=== PATIENT | female | born 1995 | race Two or more races ===

== ENCOUNTER 2019-05-18 10:43 | Emergency (ER) | payer BC ==
[~2019-05-18] VITALS: Ht 157.5 cm; Wt 61.2 kg
[2019-05-18] MEDS ORDERED: IV NORMAL SALINE 1000ML BAG 1,000 ML IV SCH (11:41)
[2019-05-18] MEDS ORDERED: KETOROLAC 30 MG/ML VIAL. IV ONE (11:45)
[2019-05-18] MEDS ORDERED: ONDANSETRON PF 4 MG/2 ML VIAL. IV ONE (11:45)
[2019-05-18 11:52] LABS: BILIRUBIN,URINE NEGATIVE (NEG); CLARITY,URINE CLEAR; COLOR,URINE YELLOW; NITRITE,URINE NEGATIVE (NEG); PH,URINE 7.5; PROTEIN,URINE NEGATIVE (NEG-TRACE); UROBILINOGEN,URINE 0.2 mg/dL (0.2 mg/dL)
--- NOTE | 2019-05-18 11:55 | PHYS DOC ---
Past Medical History Past Medical History: No Pertinent History Past Surgical History: No Surgical History Alcohol Use: Occasionally Drug Use: Marijuana Adult General Chief Complaint Chief Complaint: ABDOMINAL PAIN HPI HPI Patient is a 24 year old female patient without history of medical problem who presents with complaint of abdominal pain. Patient complaining of constant left- sided abdominal pain for the last 3 days as a sharp cramping pain pain without radiation. Patient complaining of nausea and constipation and states she usually has a bowel movement every other day but for the last 3 days she didn't have any bowel movement. Patient denies urinary symptoms, fever and chills, vomiting, vaginal bleeding or discharge, . Patient is homosexual. Patient rated her pain 8/10. Review of Systems Review of Systems Constitutional: Denies fever or chills [] Eyes: Denies change in visual acuity, redness, or eye pain [] HENT: Denies nasal congestion or sore throat [] Respiratory: Denies cough or shortness of breath [] Cardiovascular: No additional information not addressed in HPI [] GI: Reports abdominal pain, nausea, constipation, denies vomiting, bloody stools or diarrhea [] : Denies dysuria or hematuria [] Musculoskeletal: Denies back pain or joint pain [] Integument: Denies rash or skin lesions [] Neurologic: Denies headache, focal weakness or sensory changes [] Endocrine: Denies polyuria or polydipsia [] All other systems were reviewed and found to be within normal limits, except as documented in this note. Current Medications Current Medications Current Medications Medications (Trade) Dose Ordered Sig/Janet Start Time Stop Time Status Last Admin Dose Admin Ketorolac Tromethamine (Toradol 30mg Vial) 30 mg 1X ONCE 05/18/19 11:45 05/18/19 11:46 DC 05/18/19 11:50 30 MG Ondansetron HCl (Zofran) 4 mg 1X ONCE 05/18/19 11:45 05/18/19 11:46 DC 05/18/19 11:50 4 MG Sodium Chloride 1,000 ml @ 1,000 mls/hr Q1H 05/18/19 11:41 05/18/19 12:40 DC 05/18/19 11:50 1,000 MLS/HR Allergies Allergies Allergies Coded Allergies Type Severity Reaction Last Updated Verified No Known Drug Allergies 05/18/19 No Physical Exam Physical Exam Constitutional: Well developed, well nourished, mild distress, non-toxic appear ance. [] HENT: Normocephalic, atraumatic. Eyes: PERRLA, EOMI, conjunctiva normal, no discharge. [] Neck: Normal range of motion, no tenderness, supple, no stridor. [] Cardiovascular:Heart rate regular rhythm, no murmur [] Lungs & Thorax: Bilateral breath sounds clear to auscultation [] Abdomen: Bowel sounds normal, soft, no tenderness, no masses, no pulsatile masses. [] Skin: Warm, dry, no erythema, no rash. [] Back: No tenderness, no CVA tenderness. [] Extremities: No tenderness, no cyanosis, no clubbing, ROM intact, no edema. [] Neurologic: Alert and oriented X 3, no focal deficits noted. [] Psychologic: Affect normal, judgement normal, mood normal. [] Current Patient Data Vital Signs Vital Signs Date Time Temp Pulse Resp B/P (MAP) Pulse Ox O2 Delivery O2 Flow Rate FiO2 05/18/19 13:00 66 111/71 (84) 100 Room Air 05/18/19 11:13 98.6 12 98.6 Lab Values Laboratory Tests Test 05/18/19 11:20 05/18/19 11:22 05/18/19 11:55 Urine Color Yellow Urine Clarity Clear Urine pH 7.5 Urine Specific [place] 1.015 Urine Protein Negative mg/dL (NEG-TRACE) Urine Glucose (UA) Negative mg/dL (NEG) Urine Ketones (Stick) Negative mg/dL (NEG) Urine Blood Negative (NEG) Urine Nitrite Negative (NEG) Urine Bilirubin Negative (NEG) Urine Urobilinogen Dipstick 0.2 mg/dL (0.2 mg/dL) Urine Leukocyte Esterase Negative (NEG) Urine RBC 0 /HPF (0-2) Urine WBC 0 /HPF (0-4) Urine Squamous Epithelial Cells Few /LPF Urine Bacteria 0 /HPF (0-FEW) POC Urine HCG, Qualitative Hcg negative (Negative) White Blood Count 8.9 x10^3/uL (4.0-11.0) Red Blood Count 4.30 x10^6/uL (3.50-5.40) Hemoglobin 13.8 g/dL (12.0-15.5) Hematocrit 40.6 % (36.0-47.0) Mean Corpuscular Volume 95 fL (79-100) Mean Corpuscular Hemoglobin 32 pg (25-35) Mean Corpuscular Hemoglobin Concent 34 g/dL (31-37) Red Cell Distribution Width 13.2 % (11.5-14.5) Platelet Count 392 x10^3/uL (140-400) Neutrophils (%) (Auto) 72 % (31-73) Lymphocytes (%) (Auto) 18 % (24-48) L Monocytes (%) (Auto) 5 % (0-9) Eosinophils (%) (Auto) 4 % (0-3) H Basophils (%) (Auto) 1 % (0-3) Neutrophils # (Auto) 6.4 x10^3/uL (1.8-7.7) Lymphocytes # (Auto) 1.6 x10^3/uL (1.0-4.8) Monocytes # (Auto) 0.4 x10^3/uL (0.0-1.1) Eosinophils # (Auto) 0.4 x10^3/uL (0.0-0.7) Basophils # (Auto) 0.1 x10^3/uL (0.0-0.2) Sodium Level 140 mmol/L (136-145) Potassium Level 4.1 mmol/L (3.5-5.1) Chloride Level 102 mmol/L (98-107) Carbon Dioxide Level 29 mmol/L (21-32) Anion Gap 9 (6-14) Blood Urea Nitrogen 8 mg/dL (7-20) Creatinine 0.8 mg/dL (0.6-1.0) Estimated GFR (Cockcroft-Gault) 87.4 BUN/Creatinine Ratio 10 (6-20) Glucose Level 93 mg/dL (70-99) Calcium Level 9.1 mg/dL (8.5-10.1) Total Bilirubin 0.5 mg/dL (0.2-1.0) Aspartate Amino Transferase (AST) 14 U/L (15-37) L Alanine Aminotransferase (ALT) 16 U/L (14-59) Alkaline Phosphatase 44 U/L (46-116) L Total Protein 7.4 g/dL (6.4-8.2) Albumin 3.9 g/dL (3.4-5.0) Albumin/Globulin Ratio 1.1 (1.0-1.7) Lipase 52 U/L (73-393) L Laboratory Tests 05/18/19 11:55 Laboratory Tests 05/18/19 11:55 EKG EKG [] Radiology/Procedures Radiology/Procedures [][facility] [address] [place] [address] IMAGING REPORT Signed PATIENT: ASHLEIGH PAEZ JACCOUNT: [id number] : 1995 LOCATION: ER AGE: 24 SEX: F EXAM STATUS: REG ER ORD. PHYSICIAN: XUAN BARTLETT MD REASON: pain PROCEDURE: ABDOMEN SUPINE & UPRIGHT 3 supine views of the abdomen no comparison. Indication : Abdominal pain Findings: The heart is not enlarged. No pneumothorax, effusion, airspace or interstitial disease. The bowel gas pattern is unremarkable. The bony structures are unremarkable. No abnormal calcification or organomegaly. Impression: 1. Unremarkable plain film examination of the abdomen. Electronically signed by: Javier Stephens MD (05/18/2019 12:50 PM) [facility] DICTATED and SIGNED BY: JAVIER STEPHENS MD DATE: 05/18/191249 Course & Med Decision Making Course & Med Decision Making Pertinent Labs and Imaging studies reviewed. (See chart for details) Evaluation of patient in ER showed 24-year-old female patient with complaining of left-sided abdominal pain and nausea and constipation. Patient had unremarkable physical exam and labs and x-ray of abdomen. Patient felt better with treatment in ER. Plan discharge patient home with diagnosis of constipation and abdominal pain. Dragon Disclaimer Dragon Disclaimer This electronic medical record was generated, in whole or in part, using a voice recognition dictation system. Departure Departure Impression: Primary Impression: Constipation Additional Impression: Abdominal pain Disposition: 01 HOME, SELF-CARE (at 1414) Condition: IMPROVED Referrals: NO PCP (PCP) Patient Instructions: Constipation, Adult Additional Instructions: Drink plenty of liquids Follow-up with your primary care physician in 3-5 days Return to ER if not getting better Scripts Ibuprofen (IBUPROFEN) 600 Mg Tablet 600 MG PO PRN Q6HRS PRN for PAIN, #20 TAB take with food or milk Prov: XUAN BARTLETT MD 05/18/19 Magnesium Citrate (MAGNESIUM CITRATE) 296 Ml Solution 296 ML PO ONCE, #296 ML Drink half a bottle every 12 hours as needed for constipation Prov: XUAN BARTLETT MD 05/18/19 Problem Qualifiers Primary Impression: Constipation Constipation type: unspecified constipation type Qualified Codes: K59.00 - Constipation, unspecified Additional Impression: Abdominal pain Abdominal location: unspecified location Qualified Codes: R10.9 - Unspecified abdominal pain XUAN BARTLETT MD May 18, 2019 11:55
[2019-05-18 12:05] LABS: BACTERIA,URINE 0 /HPF (0-FEW); RBC,URINE 0 /HPF (0-2); SQUAMOUS EPITHELIAL CELL,UR FEW /LPF; WBC,URINE 0 /HPF (0-4)
[2019-05-18 12:11] LABS: BASO # 0.1 x10^3/uL (0.0-0.2); BASO % 1 % (0-3); EOS # 0.4 x10^3/uL (0.0-0.7); EOS % 4 % (0-3); HEMATOCRIT 40.6 % (36.0-47.0); HEMOGLOBIN 13.8 g/dL (12.0-15.5); LYMPH # 1.6 x10^3/uL (1.0-4.8); LYMPH % 18 % (24-48); MEAN CORPUSCULAR HEMOGLOBIN 32 pg (25-35); MEAN CORPUSCULAR HGB CONC 34 g/dL (31-37); MEAN CORPUSCULAR VOLUME 95 fL (79-100); MONO # 0.4 x10^3/uL (0.0-1.1); MONO % 5 % (0-9); NEUT # 6.4 x10^3/uL (1.8-7.7); NEUT % 72 % (31-73); PLATELET COUNT 392 x10^3/uL (140-400); RED CELL DISTRIBUTION WIDTH 13.2 % (11.5-14.5); WHITE BLOOD COUNT 8.9 x10^3/uL (4.0-11.0)
[2019-05-18 12:27] LABS: CALCIUM 9.1 mg/dL (8.5-10.1); CREATININE 0.8 mg/dL (0.6-1.0); GFR 87.4; POTASSIUM 4.1 mmol/L (3.5-5.1)
[2019-05-18 12:31] LABS: ALBUMIN 3.9 g/dL (3.4-5.0); ALBUMIN/GLOBULIN RATIO 1.1 (1.0-1.7); TOTAL BILIRUBIN 0.5 mg/dL (0.2-1.0); TOTAL PROTEIN 7.4 g/dL (6.4-8.2)
--- NOTE | 2019-05-18 12:53 | RAD ---
3 supine views of the abdomen no comparison. Indication : Abdominal pain Findings: The heart is not enlarged. No pneumothorax, effusion, airspace or interstitial disease. The bowel gas pattern is unremarkable. The bony structures are unremarkable. No abnormal calcification or organomegaly. Impression: 1. Unremarkable plain film examination of the abdomen. Electronically signed by: Javier Salazar MD (05/18/2019 12:50 PM) [facility]
[2019-05-18 13:00] VITALS: BP 111/71
[2019-05-18] MEDS ORDERED: MAGN296S9 PO (13:16)
[2019-05-18] MEDS ORDERED: IBUP-1007 PO (13:16)
== END 2019-05-18 13:54 | disposition home or self-care (01) ==
LOC: ER 10:43
DX: K59.00 Constipation, unspecified (principal); R10.9 Unspecified abdominal pain; R11.0 Nausea; F12.90 Cannabis use, unspecified, uncomplicated; Z79.899 Other long term (current) drug therapy
CPT/HCPCS: 36415; 74021; 80053; 81001; 81025; 83690; 85025; 96374; 96375; 99285; J1885; J2405; J7030

== ENCOUNTER 2020-07-01 09:10 | Emergency (ER) | payer SELFPAY ==
[~2020-07-01] VITALS: Ht 157.5 cm; Wt 61.3 kg
[2020-07-01 09:10] VITALS: BP 134/84
[~2020-07-01 09:10] MED LIST: IBUP-1007 PO; MAGN296S68 PO
[2020-07-01] MEDS ORDERED: PENI500T PO (09:51)
--- NOTE | 2020-07-01 09:51 | PHYS DOC ---
Past Medical History Past Medical History: Other Additional Past Medical Histor: OPIATE ABUSE Past Surgical History: No Surgical History Smoking Status: Current Every Day Smoker Additional Information: 2 CIGARETTES A DAY Alcohol Use: Occasionally Drug Use: Marijuana General Adult EDM: Chief Complaint: DENTAL PROBLEM HPI: HPI: 25-year-old female presents the ED with complaints of left lower dental pain stating " I knocked this tooth out a while back," and pain worsened last night while eating. Does not recall any new injury. No associated fever. Reports she is in a rehab clinic for opioids (h/o heroin addiction) and was referred here for evaluation. Review of Systems: Review of Systems: Constitutional: Denies fever or chills. [] Eyes: Denies change in visual acuity. [] HENT: Denies nasal congestion or sore throat. [] Respiratory: Denies cough or shortness of breath. [] Cardiovascular: Denies chest pain or edema. [] GI: Denies abdominal pain, nausea, vomiting, bloody stools or diarrhea. [] : Denies dysuria. [] Musculoskeletal: Denies back pain or joint pain. [] Integument: Denies rash. [] Neurologic: Denies headache, focal weakness or sensory changes. [] Endocrine: Denies polyuria or polydipsia. [] Lymphatic: Denies swollen glands. [] Psychiatric: Denies depression or anxiety. [] Heart Score: Risk Factors: Risk Factors: DM, Current or recent (<one month) smoker, HTN, HLP, family history of CAD, obesity. Risk Scores: Score 0 - 3: 2.5% MACE over next 6 weeks - Discharge Home Score 4 - 6: 20.3% MACE over next 6 weeks - Admit for Clinical Observation Score 7 - 10: 72.7% MACE over next 6 weeks - Early Invasive Strategies Allergies: Allergies: Allergies Coded Allergies Type Severity Reaction Last Updated Verified No Known Drug Allergies 05/18/19 No Physical Exam: PE: Constitutional: Well developed, well nourished, no acute distress, non-toxic appearance. HENT: Normocephalic, atraumatic, multiple dental caries in upper and lower teeth, points to tooth #19 = has approximately 30% decay Eyes: EOMI, conjunctiva normal, no discharge. Neck: Normal range of motion, supple, Cardiovascular: S1/2 present, regular rhythm Lungs & Thorax: Speaking in full sentences, bilateral equal chest rise, no tachypnea or increased work of breathing Abdomen: soft, no tenderness, Skin: Warm, dry, no erythema, no rash. [] Back: No tenderness, no CVA tenderness. [] Extremities: No tenderness, no cyanosis, no edema Neurologic: Alert and oriented X 3, normal motor function, normal sensory function, no focal deficits noted. [] Psychologic: Affect normal, judgement normal, mood normal. [] Current Patient Data: Vital Signs: Vital Signs Date Time Temp Pulse Resp B/P (MAP) Pulse Ox O2 Delivery O2 Flow Rate FiO2 07/01/20 09:10 98.0 88 17 134/84 (101) 96 Room Air 98.0 EKG: EKG: [] Radiology/Procedures: Radiology/Procedures: [] Course & Med Decision Making: Course & Med Decision Making Pertinent Labs and Imaging studies reviewed. (See chart for details) Concern for chronic dental pain in the setting of an opioid addict. Patient declines any Tylenol or ibuprofen in the ED. Will prescribe antibiotics to cover for abscess although patient's pain will not improve without dental clinic definitive management. Will discharge home with strict ED return precautions were given for fever, difficulties breathing, face head or neck swelling or drooling. Encouraged urgent outpatient follow-up with PMD and dental clinic information given. Life-threatening processes were considered but are low suspicion at this time, given history, physical exam and ED workup. Pt was educated on all prescription medications and adverse effects. All patient's questions were answered and pt was stable at time of discharge. Life/limb-threatening differential includes but is not limited to, Jarrell's angina, infection (periodontal or peritonsillar abscess, retropharyngeal abscess, Vincents angina, ANUG, pharyngeal/regional environmental manager/buccal space infection), trauma or fracture, dental fracture/subluxation/avulsion, dental bleeding or hemorrhage/DIC, pulpitis, alveolar osteitis or neoplasm I spoken with the patient and her caregivers. I explained the patient's condition, diagnoses and treatment plan based on the information available to me at this time. I have answered the patient and her caregiver's questions and addressed any concerns. The patient and her caregivers have a good understanding of patient's diagnosis, condition and treatment plan as can be expected at this point. Vital signs have been stable. Patient's condition is stable and appropriate for discharge from the emergency department. Patient will pursue further outpatient evaluation with primary care physician or other designated or consulting physician as outlined in the discharge instructions. The patient and/or caregivers are agreeable to this plan of care and follow-up instructions have been explained in detail. The patient and/or caregivers have received these instructions in written form and have expressed an understanding of the discharge instructions. The patient and/or caregivers are aware that any significant change of condition or worsening of symptoms should prompt immediate return to this or the closest emergency department or [facility] to 911. Ashley Disclaimer: Ashley Disclaimer: This electronic medical record was generated, in whole or in part, using a voice recognition dictation system. Departure Departure Impression: Primary Impression: Chronic dental pain Disposition: 01 DC HOME SELF CARE/HOMELESS Condition: STABLE Referrals: NO PCP (PCP) FOLLOW UP WITH FAMILY MEDICINE: Family Medicine Address: [address] [place] [id number] Patient Instructions: Dental Abscess, Dental Caries Additional Instructions: EMERGENCY DEPARTMENT GENERAL DISCHARGE INSTRUCTIONS Thank you for coming to [facility] Emergency Department (ED) today and trusting us with you care. We trust that you had a positive experience in our Emergency Department. If you wish to speak to the department management, you may call the Director at [phone]. YOUR FOLLOW UP INSTRUCTIONS ARE FOLLOWS: 1. Do you have a private Doctor? If you do not have a private doctor, please ask for a resource list of physicians or clinics that may be able to assist you with follow up care. 2. The Emergency Physicain has interpreted your x-rays. The X-Ray specialist will also review them. If there is a change in the findings, you will be notified in 48 hours when at all possible. 3. A lab test or culture has been done, your results will be reviewed and you will be notified if you need a change in treatment. ADDITIONAL INSTRUCTIONS AND INFORMATION: 1. Your care today has been supervised by a physician who is specially trained in emergency care. Many problems require more than one evaluation for a complete diagnosis and treatment. We recommend that you schedule your follow up appointment as recommended to ensure complete treatment of you illness or injury. If you are unable to obtain follow up care and continue to have a problem, or if your condition worsens, we recommend that you return to the ED. 2. We are not able to safely determine your condition over the phone nor are we able to give sound medical advice over the phone. For these safety reasons, if you call for medical advice we will ask you to come to the ED for further evaluation. 3. If you have any questions regarding these discharge instructions please call the ED at [phone]. SAFETY INFORMATION: In the interest of safety, wellness, and injury prevention; we encourage you to wear your sealbelt, if you smoke; quite smoking, and we encourage family to use a protective helmet for bicycling and other sporting events that present an increased risk for head injury. IF YOUR SYMPTOMS WORSEN OR NEW SYMPTOMS DEVELOP, OR YOU HAVE CONCERNS ABOUT YOUR CONDITION; OR IF YOUR CONDITION WORSENS WHILE YOU ARE WAITING FOR YOUR FOLLOW UP APPOINTMENT; EITHER CONTACT YOUR PRIMARY CARE DOCTOR, THE PHYSICIAN WHOSE NAME AND NUMBER YOU WERE GIVEN, OR RETURN TO THE ED IMMEDIATELY. Scripts Penicillin V Potassium (PENICILLIN V POTASSIUM) 500 Mg Tablet 2 TAB PO Q12HR for 10 Days, #40 TAB Prov: CEE HIGHTOWER DO 07/01/20 CEE HIGHTOWER DO Jul 01, 2020 09:51
== END 2020-07-01 09:54 | disposition home or self-care (01) ==
LOC: ER 09:10
DX: G89.29 Other chronic pain (principal); K08.89 Other specified disorders of teeth and supporting structures; R50.9 Fever, unspecified; R60.0 Localized edema; F17.210 Nicotine dependence, cigarettes, uncomplicated; F12.90 Cannabis use, unspecified, uncomplicated; F19.90 Other psychoactive substance use, unspecified, uncomplicated
CPT/HCPCS: 99283

== ENCOUNTER 2020-09-29 06:46 | Emergency (ER) | payer SELFPAY ==
[~2020-09-29] VITALS: Ht 157.5 cm; Wt 61.0 kg
[~2020-09-29 06:46] MED LIST changes: +PENI500T PO
[2020-09-29 06:55] VITALS: BP 124/86
--- NOTE | 2020-09-29 07:26 | EKG ---
[facility] [address] [place] [address] Test Date: 2020-09-29 Test Time: 07:11:54 Pat Name: ASHLEIGH PAEZ Department: Room: Gender: F Benzene [employer]: : 1995 Requested By: CEE HIGHTOWER Order Number: [id number] Reading MD: Measurements Intervals [place] Rate: 76 P: 60 WI: 148 QRS: 63 QRSD: 78 T: 22 QT: 390 QTc: 443 Interpretive Statements SINUS RHYTHM NORMAL ECG RI6.02 No previous ECG available for comparison
[2020-09-29 07:29] LABS: BASO # 0.1 x10^3/uL (0.0-0.2); BASO % 1 % (0-3); EOS # 0.4 x10^3/uL (0.0-0.7); EOS % 4 % (0-3); HEMATOCRIT 41.9 % (36.0-47.0); HEMOGLOBIN 14.4 g/dL (12.0-15.5); LYMPH % 33 % (24-48); MEAN CORPUSCULAR HEMOGLOBIN 30 pg (25-35); MEAN CORPUSCULAR HGB CONC 34 g/dL (31-37); MEAN CORPUSCULAR VOLUME 88 fL (79-100); MONO # 0.7 x10^3/uL (0.0-1.1); MONO % 8 % (0-9); NEUT # 4.8 x10^3/uL (1.8-7.7); NEUT % 54 % (31-73); PLATELET COUNT 445 x10^3/uL (140-400); RED BLOOD COUNT 4.78 x10^6/uL (3.50-5.40); RED CELL DISTRIBUTION WIDTH 13.8 % (11.5-14.5)
[2020-09-29 07:30] LABS: BILIRUBIN,URINE NEGATIVE (NEG); CLARITY,URINE CLEAR; COLOR,URINE YELLOW; NITRITE,URINE NEGATIVE (NEG); PROTEIN,URINE NEGATIVE (NEG-TRACE); UROBILINOGEN,URINE 0.2 mg/dL (0.2 mg/dL)
--- NOTE | 2020-09-29 07:39 | RAD ---
Exam Date: 09/29/2020 7:26 AM XR CHEST 1V Indication: Reason: n/v / Spl. Instructions: / History: FINDINGS/ IMPRESSION: The cardiac silhouette and pulmonary vasculature are within normal limits. There is no focal consolidation, pleural effusion or pneumothorax. The visualized osseous structures are intact. Electronically signed by: Andi Davison MD (09/29/2020 7:37 AM) [id number]
[2020-09-29 07:41] LABS: BACTERIA,URINE FEW /HPF (0-FEW); RBC,URINE 0 /HPF (0-2); WBC,URINE OCC /HPF (0-4)
[2020-09-29 07:42] LABS: CALCIUM 9.6 mg/dL (8.5-10.1); CREATININE 0.9 mg/dL (0.6-1.0); GFR 75.7; POTASSIUM 4.3 mmol/L (3.5-5.1)
[2020-09-29 07:43] LABS: BARBITURATES NEG (NEG); BENZODIAZEPINES NEG (NEG); CANNABINOIDS POS (NEG); COCAINE NEG (NEG); METHADONE NEG (NEG); OPIATES NEG (NEG); PHENCYCLIDINE NEG (NEG)
[2020-09-29 07:46] LABS: AMPHETAMINE/METHAMPHETAMINE POS (NEG)
[2020-09-29 07:48] LABS: ALBUMIN 4.7 g/dL (3.4-5.0); DIRECT BILIRUBIN 0.1 mg/dL (0.0-0.2); MAGNESIUM 2.1 mg/dL (1.8-2.4); TOTAL BILIRUBIN 0.5 mg/dL (0.2-1.0); TOTAL PROTEIN 7.9 g/dL (6.4-8.2)
--- NOTE | 2020-09-29 08:49 | RAD ---
EXAM: Head and cervical spine CT without contrast. HISTORY: Nausea and vomiting. TECHNIQUE: Computed tomographic images of the head and cervical spine were obtained without contrast. *One or more of the following individualized dose reduction techniques were utilized for this examina tion: 1. Automated exposure control. 2. Adjustment of the mA and/or kV according to patient size. 3. Use of iterative reconstruction technique. COMPARISON: None. FINDINGS: Head: There is no hemorrhage. There is no mass effect or midline shift. There is no hydrocephalus. Th e jones-white matter differentiation pattern is intact. The orbits are unremarkable. There is paranasa l sinus because of thickening and there are left greater than right maxillary sinus mucous retention cysts. The mastoid air cells are clear. Cervical spine: There is no listhesis. The vertebral bodies are normal in height and the disc spaces are preserved. The facet joints are intact. There is no significant stenosis. The lung apices are unr emarkable. IMPRESSION: No acute intracranial finding or evidence of acute cervical spine trauma. Electronically signed by: Fartun Henley MD (09/29/2020 8:46 AM) [id number]
[2020-09-29] MEDS ORDERED: HYDR25TA PO (09:24)
[2020-09-29] MEDS ORDERED: ONDA4TAB12 PO (09:24)
--- NOTE | 2020-09-29 09:26 | PHYS DOC ---
Past Medical History Past Medical History: Other Additional Past Medical Histor: OPIATE ABUSE Past Surgical History: No Surgical History Smoking Status: Current Every Day Smoker Additional Information: vapes Alcohol Use: Occasionally Drug Use: Marijuana General Adult EDM: Chief Complaint: NAUSEA/VOMITING/DIARRHEA HPI: HPI: 25 yo F-year-old female past medical history of PSA including opiate dependence (denies heroin use despite her last ed visit where I saw her) on Suboxone, presents the ED with complaints of nausea, nonbloody nonbilious vomiting that started 3 AM and woke patient up with epigastric abdominal pain that started after vomiting, with loose watery diarrhea. Patient states she drank a 12 pack between 8 AM to 2 PM yesterday-this is an excessive amount of alcohol for her. States she took her Suboxone around 10 PM. No associated vaginal bleeding, dysuria or hematuria. Is unsure of her last menstrual period (only female partners, has a gf present in ed w/her). Takes no routine medications. Denies any associated chest pain or difficulties breathing. Denies any suicidal homicidal ideations-is not aware that mixing alcohol with other depressants could cause apnea. States she feels weak as if she is going to pass out but d enies any head injury. Reports posterior neck pain, unsure of any trauma. Also complains of worsening anxiety. Review of Systems: Review of Systems: Constitutional: Denies fever or chills. [] Eyes: Denies change in visual acuity. [] HENT: Denies nasal congestion or sore throat. [] Respiratory: Denies cough or shortness of breath. [] Cardiovascular: Denies chest pain or edema. [] GI: Denies melena, medic easier, hematemesis or diarrhea. [] : Denies dysuria. [] Musculoskeletal: Denies back pain or joint pain. [] Integument: Denies rash. [] Neurologic: Denies headache, focal weakness or sensory changes. [] Endocrine: Denies polyuria or polydipsia. [] Lymphatic: Denies swollen glands. [] Psychiatric: Denies depression or anxiety, patient denies any suicidal or homicidal ideations Heart Score: C/O Chest Pain: No Risk Factors: Risk Factors: DM, Current or recent (<one month) smoker, HTN, HLP, family hi story of CAD, obesity. Risk Scores: Score 0 - 3: 2.5% MACE over next 6 weeks - Discharge Home Score 4 - 6: 20.3% MACE over next 6 weeks - Admit for Clinical Observation Score 7 - 10: 72.7% MACE over next 6 weeks - Early Invasive Strategies Current Medications: Current Medications Medications (Trade) Dose Ordered Sig/Janet Start Time Stop Time Status Last Admin Dose Admin Hydroxyzine HCl (Atarax) 25 mg 1X PRN 09/29/20 09:15 Allergies: Allergies: Allergies Coded Allergies Type Severity Reaction Last Updated Verified No Known Drug Allergies 05/18/19 No Physical Exam: PE: Constitutional: Well developed, well nourished, no acute distress, non-toxic appearance, thin HENT: Normocephalic, atraumatic, Eyes: EOMI, conjunctiva normal, no discharge. Neck: Normal range of motion, supple, Cardiovascular: S1/2 present, regular rhythm Lungs & Thorax: Speaking in full sentences, bilateral equal chest rise, no tachypnea or increased work of breathing Abdomen: soft, no tenderness, no active vomiting in ED, no rigidity or guarding, no Flanagan sign, no pain at McBurney's point, no Rovsing sign Skin: Warm, dry, no erythema, no rash. [] Back: No tenderness, no CVA tenderness. [] Extremities: No tenderness, no cyanosis, no lower extremity edema Neurologic: Alert and oriented X 3, normal motor function, normal sensory function, no focal deficits noted. [] Psychologic: Affect normal, judgement normal, mood normal. [] Nexus C-spine criteria are negative: There is no post midline tenderness, the patient is not intoxicated, there is a normal level of alertness, there are no focal neurologic deficits and there are no distracting injuries. Current Patient Data: Labs: Laboratory Tests Test 09/29/20 07:15 White Blood Count 9.0 x10^3/uL (4.0-11.0) Red Blood Count 4.78 x10^6/uL (3.50-5.40) Hemoglobin 14.4 g/dL (12.0-15.5) Hematocrit 41.9 % (36.0-47.0) Mean Corpuscular Volume 88 fL (79-100) Mean Corpuscular Hemoglobin 30 pg (25-35) Mean Corpuscular Hemoglobin Concent 34 g/dL (31-37) Red Cell Distribution Width 13.8 % (11.5-14.5) Platelet Count 445 x10^3/uL (140-400) H Neutrophils (%) (Auto) 54 % (31-73) Lymphocytes (%) (Auto) 33 % (24-48) Monocytes (%) (Auto) 8 % (0-9) Eosinophils (%) (Auto) 4 % (0-3) H Basophils (%) (Auto) 1 % (0-3) Neutrophils # (Auto) 4.8 x10^3/uL (1.8-7.7) Lymphocytes # (Auto) 3.0 x10^3/uL (1.0-4.8) Monocytes # (Auto) 0.7 x10^3/uL (0.0-1.1) Eosinophils # (Auto) 0.4 x10^3/uL (0.0-0.7) Basophils # (Auto) 0.1 x10^3/uL (0.0-0.2) Urine Collection Type Unknown Urine Color Yellow Urine Clarity Clear Urine pH 6.0 (<5.0-8.0) Urine Specific [place] 1.025 (1.000-1.030) Urine Protein Negative mg/dL (NEG-TRACE) Urine Glucose (UA) Negative mg/dL (NEG) Urine Ketones (Stick) Trace mg/dL (NEG) Urine Blood Negative (NEG) Urine Nitrite Negative (NEG) Urine Bilirubin Negative (NEG) Urine Urobilinogen Dipstick 0.2 mg/dL (0.2 mg/dL) Urine Leukocyte Esterase Negative (NEG) Urine RBC 0 /HPF (0-2) Urine WBC Occ /HPF (0-4) Urine Squamous Epithelial Cells Few /LPF Urine Bacteria Few /HPF (0-FEW) Urine Mucus Mod /LPF Sodium Level 139 mmol/L (136-145) Potassium Level 4.3 mmol/L (3.5-5.1) Chloride Level 102 mmol/L (98-107) Carbon Dioxide Level 27 mmol/L (21-32) Anion Gap 10 (6-14) Blood Urea Nitrogen 15 mg/dL (7-20) Creatinine 0.9 mg/dL (0.6-1.0) Estimated GFR (Cockcroft-Gault) 75.7 Glucose Level 96 mg/dL (70-99) Calcium Level 9.6 mg/dL (8.5-10.1) Magnesium Level 2.1 mg/dL (1.8-2.4) Total Bilirubin 0.5 mg/dL (0.2-1.0) Direct Bilirubin 0.1 mg/dL (0.0-0.2) Aspartate Amino Transferase (AST) 21 U/L (15-37) Alanine Aminotransferase (ALT) 26 U/L (14-59) Alkaline Phosphatase 55 U/L (46-116) Troponin I Quantitative < 0.017 ng/mL (0.000-0.055) Total Protein 7.9 g/dL (6.4-8.2) Albumin 4.7 g/dL (3.4-5.0) Lipase 54 U/L (73-393) L Urine Opiates Screen Neg (NEG) Urine Methadone Screen Neg (NEG) Urine Barbiturates Neg (NEG) Urine Phencyclidine Screen Neg (NEG) Urine Amphetamine/Methamphetamine Pos (NEG) Urine Benzodiazepines Screen Neg (NEG) Urine Cocaine Screen Neg (NEG) Urine Cannabinoids Screen Pos (NEG) Urine Ethyl Alcohol Neg (NEG) Laboratory Tests 09/29/20 07:15 Laboratory Tests 09/29/20 07:15 Vital Signs: Vital Signs Date Time Temp Pulse Resp B/P (MAP) Pulse Ox O2 Delivery O2 Flow Rate FiO2 09/29/20 06:55 98.3 84 20 124/86 (99) 100 Room Air 98.3 EKG: EKG: Sinus rhythm at 76 bpm, no axis deviation, normal intervals, T wave inversion V2 and lead III, S1Q3T3 present, no ST elevations or ST depressions, no active chest pain pressure heaviness or tightness Radiology/Procedures: Radiology/Procedures: [] IMAGING REPORT Signed PATIENT: ASHLEIGH PAEZ JACCOUNT: [id number] : 1995 LOCATION: ER AGE: 25 SEX: F EXAM STATUS: REG ER ORD. PHYSICIAN: CEE HIGHTOWER DO REASON: n/v PROCEDURE: CT HEAD AND CERVICAL SPINE WO EXAM: Head and cervical spine CT without contrast. HISTORY: Nausea and vomiting. TECHNIQUE: Computed tomographic images of the head and cervical spine were obtained without contrast. *One or more of the following individualized dose reduction techniques were utilized for this examination: 1. Automated exposure control. 2. Adjustment of the mA and/or kV according to patient size. 3. Use of iterative reconstruction technique. COMPARISON: None. FINDINGS: Head: There is no hemorrhage. There is no mass effect or midline shift. There is no hydrocephalus. The jones-white matter differentiation pattern is intact. The orbits are unremarkable. There is paranasal sinus because of thickening and there are left greater than right maxillary sinus mucous retention cysts. The mastoid air cells are clear. Cervical spine: There is no listhesis. The vertebral bodies are normal in height and the disc spaces are preserved. The facet joints are intact. There is no significant stenosis. The lung apices are unremarkable. IMPRESSION: No acute intracranial finding or evidence of acute cervical spine trauma. Electronically signed by: Fartun Hemphill MD (09/29/2020 8:46 AM) [id number] DICTATED and SIGNED BY: FARTUN HEMPHILL MD DATE: 09/29/20 [id number] IMAGING REPORT Signed PATIENT: ASHLEIGH PAEZ JACCOUNT: [id number] : 1995 LOCATION: ER AGE: 25 SEX: F EXAM STATUS: REG ER ORD. PHYSICIAN: CEE HIGHTOWER DO REASON: n/v PROCEDURE: PORTABLE CHEST 1V Exam Date: 09/29/2020 7:26 AM XR CHEST 1V Indication: Reason: n/v / Spl. Instructions: / History: FINDINGS/ IMPRESSION: The cardiac silhouette and pulmonary vasculature are within normal limits. There is no focal consolidation, pleural effusion or pneumothorax. The visualized osseous structures are intact. Electronically signed by: Ruben Davison MD (09/29/2020 7:37 AM) [id number] DICTATED and SIGNED BY: RUBEN DAVISON MD DATE: 09/29/20 [id number] 0 Course & Med Decision Making: Course & Med Decision Making Pertinent Labs and Imaging studies reviewed. (See chart for details) Concern for polysubstance abuse with Suboxone, alcohol and methamphetamine/amphetamine. Patient denies any suicidal homicidal ideations. Complains of anxiety that we will treat with Atarax and DC home with Zofran. Patient with no active vomiting in the ED. imaging with no signs of trauma or abnormality. On reevaluation patient states nausea is well controlled, has no further epigastric abdominal pain is requesting to be discharged. Will discharge home with strict ED return precautions were given for syncope, neurologic deficits, chest pain or difficulties breathing. Encouraged urgent outpatient follow-up with PMD within the next 7 days and RSI as needed for drug rehab. Life-threatening processes were considered but are low suspicion at this time, given history, physical exam and ED workup. Pt was educated on all prescription medications and adverse effects. All patient's questions were answered and pt was stable at time of discharge. Life/limb-threatening differential includes but is not limited to, end organ damage/sepsis, trauma/abuse/neglect, neurologic deficit, alcohol/drug ingestion, toxidrome, suicidal/homicidal ideations plans or attempts, psychosis or mental illness resulting in self neglect and inability to care for self. I spoken with the patient and her caregivers. I explained the patient's condition, diagnoses and treatment plan based on the information available to me at this time. I have answered the patient and her caregiver's questions and a ddressed any concerns. The patient and her caregivers have a good understanding of patient's diagnosis, condition and treatment plan as can be expected at this point. Vital signs have been stable. Patient's condition is stable and appropriate for discharge from the emergency department. Patient will pursue further outpatient evaluation with primary care physician or other designated or consulting physician as outlined in the discharge instructions. The patient and/or caregivers are agreeable to this plan of care and follow-up instructions have been explained in detail. The patient and/or caregivers have received these instructions in written form and have expressed an understanding of the discharge instructions. The patient and/or caregivers are aware that any significant change of condition or worsening of symptoms should prompt immediate return to this or the closest emergency department or call to 911. Ashley Disclaimer: Ashley Disclaimer: This electronic medical record was generated, in whole or in part, using a voice recognition dictation system. Departure Departure Impression: Primary Impression: Nausea & vomiting Additional Impressions: Anxiety Polysubstance abuse Disposition: HOME / SELF CARE / HOMELESS Condition: STABLE Referrals: NO PCP (PCP) Follow-up with your primary care physician within 7 days or FOLLOW UP WITH FAMILY MEDICINE: Family Medicine Address: [address] [place] [address] Patient Instructions: Anxiety and Panic Attacks, Nausea and Vomiting Additional Instructions: DO NOT MIX ALCOHOL WITH SUBOXONE FOR IT CAN BE DEADLY, MAY INCREASE RISK OF APNEA-MAY STOP YOU FROM BREATHING [facility], [facility] -prn for substance abuse 24/12 crisis stabilization services [address] [place] [address] EMERGENCY DEPARTMENT GENERAL DISCHARGE INSTRUCTIONS Thank you for coming to [facility] Emergency Department (ED) today and trusting us with you care. We trust that you had a positive experience in our Emergency Department. If you wish to speak to the department management, you may call the Director at [phone]. YOUR FOLLOW UP INSTRUCTIONS ARE FOLLOWS: 1. Do you have a private Doctor? If you do not have a private doctor, please ask for a resource list of physicians or clinics that may be able to assist you with follow up care. 2. The Emergency Physicain has interpreted your x-rays. The X-Ray specialist will also review them. If there is a change in the findings, you will be notified in 48 hours when at all possible. 3. A lab test or culture has been done, your results will be reviewed and you will be notified if you need a change in treatment. ADDITIONAL INSTRUCTIONS AND INFORMATION: 1. Your care today has been supervised by a physician who is specially trained in emergency care. Many problems require more than one evaluation for a complete diagnosis and treatment. We recommend that you schedule your follow up appointment as recommended to ensure complete treatment of you illness or injury. If you are unable to obtain follow up care and continue to have a problem, or if your condition worsens, we recommend that you return to the ED. 2. We are not able to safely determine your condition over the phone nor are we able to give sound medical advice over the phone. For these safety reasons, if you call for medical advice we will ask you to come to the ED for further evaluation. 3. If you have any questions regarding these discharge instructions please call the ED at [phone]. SAFETY INFORMATION: In the interest of safety, wellness, and injury prevention; we encourage you to wear your sealbelt, if you smoke; quite smoking, and we encourage family to use a protective helmet for bicycling and other sporting events that present an increased risk for head injury. IF YOUR SYMPTOMS WORSEN OR NEW SYMPTOMS DEVELOP, OR YOU HAVE CONCERNS ABOUT YOUR CONDITION; OR IF YOUR CONDITION WORSENS WHILE YOU ARE WAITING FOR YOUR FOLLOW UP APPOINTMENT; EITHER CONTACT YOUR PRIMARY CARE DOCTOR, THE PHYSICIAN WHOSE NAME AND NUMBER YOU WERE GIVEN, OR RETURN TO THE ED IMMEDIATELY. Scripts Hydroxyzine Hcl (HYDROXYZINE HCL) 25 Mg Tablet 1 TAB PO TID PRN for ANXIETY, #20 TAB Prov: CEE HIGHTOWER DO 09/29/20 Ondansetron (ONDANSETRON ODT) 4 Mg Tab.rapdis 1 TAB PO PRN Q6-8HRS, #20 TAB Prov: CEE HIGHTOWER DO 09/29/20 CEE HIGHTOWER DO Sep 29, 2020 09:26
[2020-09-29 09:33] LABS: U PREG PATIENT NEGATIVE (NEG)
[2020-09-29] MEDS: hydrOXYzine 25 MG TABLET PO PRN (09:41)
== END 2020-09-29 09:41 | disposition home or self-care (01) ==
LOC: ER 06:46
DX: F11.20 Opioid dependence, uncomplicated (principal); R11.2 Nausea with vomiting, unspecified; R10.13 Epigastric pain; F17.200 Nicotine dependence, unspecified, uncomplicated
CPT/HCPCS: 36415; 70450; 71045; 72125; 80048; 80076; 80307; 81001; 81025; 83690; 83735; 84484; 85025; 93005; 99285-25

== ENCOUNTER 2021-06-01 04:32 | Emergency (ER) | payer SELFPAY ==
[~2021-06-01] VITALS: Ht 154.9 cm; Wt 70.5 kg
[~2021-06-01 04:32] MED LIST changes: +HYDR25TA PO; +ONDA4TAB12 PO
[2021-06-01 05:05] LABS: BASO % 0 % (0-3); EOS % 0 % (0-3); HEMOGLOBIN 13.8 g/dL (12.0-15.5); LYMPH % 21 % (24-48); MEAN CORPUSCULAR HEMOGLOBIN 30 pg (25-35); MEAN CORPUSCULAR HGB CONC 35 g/dL (31-37); MEAN CORPUSCULAR VOLUME 87 fL (79-100); MONO # 0.6 x10^3/uL (0.0-1.1); MONO % 6 % (0-9); NEUT # 6.9 x10^3/uL (1.8-7.7); NEUT % 72 % (31-73); PLATELET COUNT 418 x10^3/uL (140-400); RED BLOOD COUNT 4.59 x10^6/uL (3.50-5.40); RED CELL DISTRIBUTION WIDTH 14.1 % (11.5-14.5); WHITE BLOOD COUNT 9.6 x10^3/uL (4.0-11.0)
[2021-06-01 05:19] LABS: CALCIUM 9.3 mg/dL (8.5-10.1); GFR 66.5; POTASSIUM 3.5 mmol/L (3.5-5.1)
[2021-06-01 05:24] LABS: ALBUMIN 4.4 g/dL (3.4-5.0); ALBUMIN/GLOBULIN RATIO 1.2 (1.0-1.7); TOTAL BILIRUBIN 0.7 mg/dL (0.2-1.0); TOTAL PROTEIN 8.1 g/dL (6.4-8.2)
[2021-06-01] MEDS ORDERED: IV NORMAL SALINE 1000ML BAG 1,000 ML IV ONE (05:30)
[2021-06-01] MEDS ORDERED: ONDANSETRON PF 4 MG/2 ML VIAL. IVP ONE ×2 (05:30→08:45)
--- NOTE | 2021-06-01 05:35 | PHYS DOC ---
Past Medical History Past Medical History: Other Additional Past Medical Histor: OPIATE ABUSE, INSOMINIA (HUDSONYUMIKO Dale HEARD) Past Surgical History: No Surgical History (YUMIKO TREVIÑO DO) Smoking Status: Current Every Day Smoker Alcohol Use: None Drug Use: Marijuana (HUDSONYUMIKO Dale HEARD) General Adult EDM: Chief Complaint: ABDOMINAL PAIN HPI: HPI: Patient is a 26 year old female presents with the chief complaint of nausea vomiting and abdominal pain. Onset of symptoms 2 hours. Patient has had multiple episodes of vomiting in the ER. Patient abdominal pain is diffuse. She states she did have a loose stool yesterday. Patients states since 2200hrs and prior to nausea and vomiting she took a total of 10 tablets of trazodone because she could not sleep. Patient denies any HI or SI. Patient is not vaccinated. (YUMIKO TREVIÑO DO) Review of Systems: Review of Systems: Review of systems: Constitutional symptoms- No fever, no chills. Eyes- No Discharge, No Visual Loss Respiratory symptoms- No shortness of breath, No wheezing, No Dyspnea on Exertion Cardiovascular Systems; No chest pain, No Palpitations, No syncope Gastrointestinal symptoms: Positive abdominal pain, Positive nausea, Positive vomiting Genitourinary symptoms: No dysuria. Musculoskeletal symptoms: No back pain No extremity pain. NEUROLOGICAL Symptoms: No headache, no generalized weakness; No focal Weakness Skin: No rash. (YUMIKO TREVIÑO DO) Heart Score: C/O Chest Pain: N/A Risk Factors: Risk Factors: DM, Current or recent (<one month) smoker, HTN, HLP, family history of CAD, obesity. Risk Scores: Score 0 - 3: 2.5% MACE over next 6 weeks - Discharge Home Score 4 - 6: 20.3% MACE over next 6 weeks - Admit for Clinical Observation Score 7 - 10: 72.7% MACE over next 6 weeks - Early Invasive Strategies (YUMIKO TREVIÑO DO) C/O Chest Pain: No (DARIUS MENDIETA MD) Current Medications: Current Medications Medications (Trade) Dose Ordered Sig/Janet Start Time Stop Time Status Last Admin Dose Admin Ondansetron HCl (Zofran) 4 mg 1X ONCE 06/01/21 05:30 06/01/21 05:31 DC 06/01/21 05:17 4 MG Sodium Chloride 1,000 ml @ 1,000 mls/hr 1X ONCE 06/01/21 05:30 06/01/21 06:29 06/01/21 05:17 1,000 MLS/HR (YUMIKO TREVIÑO DO) Allergies: Allergies: Allergies Coded Allergies Type Severity Reaction Last Updated Verified No Known Drug Allergies 05/18/19 No (YUMIKO TREVIÑO DO) Physical Exam: PE: General: alert, no acute distress. Skin: warm, dry and intact, no erythema, no rash. HENT: bilateral external ears normal, oropharynx moist, nose normal. Head:: Normocephalic, atraumatic. Neck: Trachea midline. Eyes: EOMI, Normal conjunctiva, No drainage CARDIOVASCULAR: Regular rate and rhythm RESPIRATORY: No respiratory distress Back: Full range of motion. MUSCULOSKELETAL: Full range of motion of bilateral upper and lower extremities. GASTROINTESTINAL: Abdomen soft without rebound or guarding. NEUROLOGICAL: Alert and noted to person, place and time. No neurological deficits observed Psychiatric: Cooperative. Denies HI denies SI (YUMIKO TREVIÑO DO) Current Patient Data: Labs: Laboratory Tests Test 06/01/21 04:45 White Blood Count 9.6 x10^3/uL (4.0-11.0) Red Blood Count 4.59 x10^6/uL (3.50-5.40) Hemoglobin 13.8 g/dL (12.0-15.5) Hematocrit 40.0 % (36.0-47.0) Mean Corpuscular Volume 87 fL (79-100) Mean Corpuscular Hemoglobin 30 pg (25-35) Mean Corpuscular Hemoglobin Concent 35 g/dL (31-37) Red Cell Distribution Width 14.1 % (11.5-14.5) Platelet Count 418 x10^3/uL (140-400) H Neutrophils (%) (Auto) 72 % (31-73) Lymphocytes (%) (Auto) 21 % (24-48) L Monocytes (%) (Auto) 6 % (0-9) Eosinophils (%) (Auto) 0 % (0-3) Basophils (%) (Auto) 0 % (0-3) Neutrophils # (Auto) 6.9 x10^3/uL (1.8-7.7) Lymphocytes # (Auto) 2.0 x10^3/uL (1.0-4.8) Monocytes # (Auto) 0.6 x10^3/uL (0.0-1.1) Eosinophils # (Auto) 0.0 x10^3/uL (0.0-0.7) Basophils # (Auto) 0.0 x10^3/uL (0.0-0.2) Sodium Level 141 mmol/L (136-145) Potassium Level 3.5 mmol/L (3.5-5.1) Chloride Level 102 mmol/L (98-107) Carbon Dioxide Level 23 mmol/L (21-32) Anion Gap 16 (6-14) H Blood Urea Nitrogen 11 mg/dL (7-20) Creatinine 1.0 mg/dL (0.6-1.0) Estimated GFR (Cockcroft-Gault) 66.5 BUN/Creatinine Ratio 11 (6-20) Glucose Level 129 mg/dL (70-99) H Calcium Level 9.3 mg/dL (8.5-10.1) Total Bilirubin Pending Aspartate Amino Transferase (AST) Pending Alanine Aminotransferase (ALT) Pending Alkaline Phosphatase Pending Total Protein Pending Albumin Pending Albumin/Globulin Ratio Pending Lipase Pending Laboratory Tests 06/01/21 04:45 Laboratory Tests 06/01/21 04:45 Vital Signs: Vital Signs Date Time Temp Pulse Resp B/P (MAP) Pulse Ox O2 Delivery O2 Flow Rate FiO2 06/01/21 04:45 98.4 86 16 128/88 (101) 100 Room Air 98.4 (YUMIKO TREVIÑO DO) EKG: EKG: [] Performed at 0523 Rate [address] elevation No ST depression No acute NE qt 478 qtc 520 (YUMIKO TREVIÑO DO) Radiology/Procedures: Radiology/Procedures: [] (YUMIKO TREVIÑO DO) Radiology/Procedures: [facility] [address] [place], [place] [id number] IMAGING REPORT Signed PATIENT: ASHLEIGH PAEZ JACCOUNT: [id number] : 1995 LOCATION: ER AGE: 26 SEX: F EXAM STATUS: REG ER ORD. PHYSICIAN: YUMIKO TREVIÑO DO REASON: ABD PAIN;OMNI 300, 75ML PROCEDURE: CT ABD PELV W/ IV CONTRST ONLY CT abdomen and pelvis with contrast PQRS statement: CT scans at this facility use dose reduction including either automated exposure control, iterative reconstructions, and /or weight based radiation dosing via mA and kV modification when appropriate to reduce radiation dose to as low as reasonably achievable. HISTORY: Abdominal pain. Contrast: 75 mL Omnipaque 300 intravenous contrast. Abdomen findings: Hypodensity likely focal fat process at the falciform ligament left hepatic lobe. Gallbladder, pancreas, spleen, kidneys and adrenal glands are unremarkable. Edematous wall thickening throughout the large bowel. The appendix is negative no bowel obstruction. No abdominal fluid or adenopathy. Pelvis findings: Uterus, ovaries, bladder and bones are unremarkable. Edematous wall thickening rectosigmoid colon. IMPRESSION: Diffuse colitis. Electronically signed by: Rigoberto Woods MD (06/01/2021 7:00 AM) [facility] DICTATED and SIGNED BY: RIGOBERTO WOODS MD DATE: 06/01/21 [id number] 0 (DARIUS MENDIETA MD) Course & Med Decision Making: Course & Med Decision Making Pertinent Labs and Imaging studies reviewed. (See chart for details) []Treatment included toradol for pain. zofran for nausea and IV fluids. Discussed patient with poison control- supportive care. Patient signed out to Dr Mendieta at shift change- disposition pending labs, radiology, and re-evaluation. (YUMIKO TREVIÑO DO) Course & Med Decision Making Work-up unremarkable, tolerating p.o. (DARIUS MENDIETA MD) Dragon Disclaimer: Ashley Disclaimer: This electronic medical record was generated, in whole or in part, using a voice recognition dictation system. (YUMIKO TREVIÑO DO) Departure Departure Impression: Primary Impression: Nausea & vomiting Additional Impression: Overdose Disposition: HOME / SELF CARE / HOMELESS Condition: STABLE Referrals: NO PCP (PCP) Patient Instructions: Colitis Scripts Ondansetron (ONDANSETRON ODT) 4 Mg Tab.rapdis 1 TAB PO PRN Q6-8HRS PRN for NAUSEA, #16 TAB Prov: DARIUS MENDIETA MD 06/01/21 YUMIKO TREVIÑO DO Jun 01, 2021 05:35 DARIUS MENDIETA MD Jun 01, 2021 07:28
--- NOTE | 2021-06-01 05:55 | EKG ---
[facility] [address] [place] [address] Test Date: 2021-06-01 Test Time: 05:23:37 Pat Name: ASHLEIGH PAEZ Department: Room: Gender: F Coding Specialist Home Health: : 1995 Requested By: YUMIKO TREVIÑO Order Number: [id number] Reading MD: Measurements Intervals [place] Rate: 70 P: 216 VA: 162 QRS: 69 QRSD: 90 T: 60 QT: 478 QTc: 520 Interpretive Statements SINUS RHYTHM PROLONGED QT NO SPECIFIC ECG ABNORMALITIES RI6.02 No previous ECG available for comparison
[2021-06-01 06:13] LABS: ACETAMIN < 2 mcg/ml (10-30); SALIC 9.3 mg/dL (2.8-20.0)
[2021-06-01] MEDS ORDERED: CONTRAST GIVEN. MC PRN (06:15)
[2021-06-01] MEDS ORDERED: IOHEXOL 300 MG/ML 100ML VIAL. IV ONE (06:30)
[2021-06-01] MEDS ORDERED: KETOROLAC 30 MG/ML VIAL. IVP ONE (06:30)
--- NOTE | 2021-06-01 07:02 | RAD ---
CT abdomen and pelvis with contrast PQRS statement: CT scans at this facility use dose reduction including either automated exposure cont rol, iterative reconstructions, and /or weight based radiation dosing via mA and kV modification when appropriate to reduce radiation dose to as low as reasonably achievable. HISTORY: Abdominal pain. Contrast: 75 mL Omnipaque 300 intravenous contrast. Abdomen findings: Hypodensity likely focal fat process at the falciform ligament left hepatic lobe. G allbladder, pancreas, spleen, kidneys and adrenal glands are unremarkable. Edematous wall thickening throughout the large bowel. The appendix is negative no bowel obstruction. No abdominal fluid or medina opathy. Pelvis findings: Uterus, ovaries, bladder and bones are unremarkable. Edematous wall thickening recto sigmoid colon. IMPRESSION: Diffuse colitis. Electronically signed by: Bart Woods MD (06/01/2021 7:00 AM) [facility]
[2021-06-01] MEDS ORDERED: HALOPERIDOL LACTATE 5 MG/ML VIAL. IVP ONE (07:30)
[2021-06-01] MEDS ORDERED: diphenhydrAMINE 50 MG/ML VIAL IVP ONE (07:30)
--- NOTE | 2021-06-01 07:43 | EKG ---
[facility] [address] [place] [address] Test Date: 2021-06-01 Test Time: 07:30:38 Pat Name: ASHLEIGH PAEZ Department: Room: Gender: F [employer]et P[employer]her: : 1995 Requested By: DARIUS MENDIETA Order Number: [id number] Reading MD: Measurements Intervals [place] Rate: 68 P: IN: QRS: 41 QRSD: 90 T: 30 QT: 434 QTc: 467 Interpretive Statements IRREGULAR RHYTHM, NO P-WAVE FOUND OTHERWISE NORMAL ECG RI6.02 No previous ECG available for comparison
[2021-06-01 07:54] LABS: BILIRUBIN,URINE NEGATIVE (NEG); CLARITY,URINE CLEAR; COLOR,URINE YELLOW; NITRITE,URINE NEGATIVE (NEG); PH,URINE 6.5 (<5.0-8.0); PROTEIN,URINE NEGATIVE (NEG-TRACE); UROBILINOGEN,URINE 0.2 mg/dL (0.2 mg/dL)
[2021-06-01 08:02] LABS: BARBITURATES NEG (NEG); BENZODIAZEPINES POS (NEG); CANNABINOIDS NEG (NEG); COCAINE NEG (NEG); METHADONE NEG (NEG); OPIATES NEG (NEG); PHENCYCLIDINE NEG (NEG)
[2021-06-01 08:03] LABS: AMPHETAMINE/METHAMPHETAMINE POS (NEG)
[2021-06-01 08:08] LABS: SALIC 1.5 mg/dL (2.8-20.0)
[2021-06-01 08:12] LABS: BACTERIA,URINE 0 /HPF (0-FEW); RBC,URINE 0 /HPF (0-2); WBC,URINE RARE /HPF (0-4)
[2021-06-01] MEDS ORDERED: ONDA4TAB12 PO (09:42)
[2021-06-01 10:06] VITALS: BP 145/91
[2021-06-01] MEDS ORDERED: CLON0.1T PO (15:57)
== END 2021-06-01 10:08 | disposition home or self-care (01) ==
LOC: ER 04:32
DX: T40.601A Poisoning by unspecified narcotics, accidental (unintentional), initial encounter (principal); R11.2 Nausea with vomiting, unspecified; R19.7 Diarrhea, unspecified; F17.200 Nicotine dependence, unspecified, uncomplicated; Y92.89 Other specified places as the place of occurrence of the external cause
CPT/HCPCS: 36415; 74177; 80053; 80307; 80329; 81001; 83690; 83735; 84702; 85025; 87426; 93005; 96361; 96374; 96375; 96376; 99285; G0480; J1200; J1630; J1885; J2405; J7030; Q9967; U0003; U0005

== ENCOUNTER 2021-06-01 15:24 | Emergency (ER) | payer SELFPAY ==
[~2021-06-01] VITALS: Ht 154.9 cm; Wt 68.0 kg
[2021-06-01] MEDS ORDERED: CLON0.1T PO (15:57)
[2021-06-01] MEDS ORDERED: cloNIDine HCL 0.1 MG TABLET PO ONE (16:00)
--- NOTE | 2021-06-01 16:06 | PHYS DOC ---
Past Medical History Past Medical History: Other Additional Past Medical Histor: OPIATE ABUSE, INSOMINIA Past Surgical History: No Surgical History Smoking Status: Current Every Day Smoker Alcohol Use: None Drug Use: Marijuana General Adult EDM: Chief Complaint: NAUSEA/VOMITING/DIARRHEA HPI: HPI: Patient is a 26 year old female who presents with body aches and muscle spasm that began earlier today. Patient was discharged from the emergency department this morning for withdrawal symptoms from fentanyl. Patient is currently on day 3 without opioids. She states that after her discharge, while she was lying in bed, she developed "muscle spasms." Patient reports that when she stood up her back was "twisted," and she fell from standing to the floor. She denies pain as a result from the fall, only generalized body pain. Review of Systems: Review of Systems: ROS negative or noncontributory except as mentioned in HPI. Heart Score: C/O Chest Pain: No Allergies: Allergies: Allergies Coded Allergies Type Severity Reaction Last Updated Verified No Known Drug Allergies 05/18/19 No Physical Exam: PE: Constitutional: Well developed, well nourished, no acute distress, non-toxic appearance. Neck: Normal range of motion, no step-off, no midline tenderness, no paraspinal tenderness or spasm. Cardiovascular: Heart rate regular rhythm, no murmur. Lungs & Thorax: Bilateral breath sounds clear to auscultation. Skin: Warm, dry, no erythema, no rash no abrasion, no laceration, no ecchymosis. Back: No tenderness, no step-offs, no midline tenderness, no paraspinal muscle spasm appreciated. Extremities: No tenderness, no cyanosis, no clubbing, ROM intact, no edema, no deformity, distal pulses intact. Current Patient Data: Vital Signs: Vital Signs Date Time Temp Pulse Resp B/P (MAP) Pulse Ox O2 Delivery O2 Flow Rate FiO2 06/01/21 16:09 72 130/86 06/01/21 15:25 98.6 75 18 130/86 (101) 100 Room Air 98.6 Course & Med Decision Making: Course & Med Decision Making Pertinent Labs and Imaging studies reviewed. (See chart for details) Patient is a 26-year-old female currently withdrawing from fentanyl. She was discharged from the emergency department earlier today with a prescription for Zofran to treat her nausea. On presentation today, she intermittently makes twitchy repeated body movements related to her neck and sometimes her hands. She is requesting nonopioid medication, such as muscle relaxer. Had a discussion with patient regarding substance use and the risk of substitution, which can create new dependence issues. I will give the patient 0.1 clonidine here in the department and prescribe for the next few days to aid in parasympathetic activation to ease her withdrawal symptoms. Patient counseled on risks of lightheadedness and hypotension. She understands and is agreeable to discharge plan. Ashley Disclaimer: Ashley Disclaimer: This electronic medical record was generated, in whole or in part, using a voice recognition dictation system. Departure Departure Impression: Primary Impression: Withdrawal from opioids Disposition: 01 HOME / SELF CARE / HOMELESS Condition: STABLE Referrals: NO PCP (PCP) Patient Instructions: Narcotic Withdrawal Additional Instructions: Please take the Catapres prescribed to you as directed. This medication can make you feel lightheaded, so be cautious making any sudden movements. When you get up from laying down or sitting position, sit for a moment and stand slowly. Please return to the emergency department for worsening symptoms or development of any new ones. Scripts Clonidine Hcl (CLONIDINE HCL) 0.1 Mg Tablet 0.1 MG PO BID, #8 TAB Take 1 tablet by mouth twice per day. May take 1 additional tablet per day if needed. Do not take more than 3 tablets in 1 day. Please be cautious when standing from sitting or laying down position. Prov: DEAN CABELLO 06/01/21 DEAN CABELLO Jun 01, 2021 16:06
[2021-06-01 16:20] VITALS: BP 126/88
--- NOTE | 2021-06-01 17:03 | NUR ---
IP: Attempted to contact pt concerning covid results. No answer, left a voicemail to return the call.
--- NOTE | 2021-06-02 14:48 | NUR ---
IP: Attempted to contact pt a second time concerning covid results. No answer, left a second voicemail to return the call.
== END 2021-06-01 16:20 | disposition home or self-care (01) ==
LOC: ER 15:24
DX: F11.23 Opioid dependence with withdrawal (principal); M62.838 Other muscle spasm; F17.200 Nicotine dependence, unspecified, uncomplicated
CPT/HCPCS: 99283